=== PATIENT | male | born 1955 | race Hispanic/Latino ===

== ENCOUNTER 2018-03-15 12:18 | Inpatient (IN) | payer OTHER, BC, MEDICARE ==
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
[2018-03-15 13:09] LABS: ALB/GLOB RATIO 0.5 (1.0-2.1); ALBUMIN 2.3 g/dL (3.5-5.0); ALT/SGPT 44 U/L (21-72); AST/SGOT 95 U/L (17-59); BLOOD UREA NITROGEN 31 mg/dl (9-20); CALCIUM 8.2 mg/dL (8.4-10.2); GFR AFRICAN-AMERICAN > 60; GFR NON-AFRICAN AMERICAN > 60
--- NOTE | 2018-03-15 13:26 | RAD ---
HISTORY: cough COMPARISON: No prior. FINDINGS: LUNGS: No active pulmonary disease. PLEURA: No significant pleural effusion identified, no pneumothorax apparent. CARDIOVASCULAR: Atherosclerotic aortic calcifications. Cardiomediastinal silhouette prominent. OSSEOUS STRUCTURES: Degenerative changes. VISUALIZED UPPER ABDOMEN: Normal. OTHER FINDINGS: None. IMPRESSION: No active disease.
--- NOTE | 2018-03-15 13:37 | CT ---
PROCEDURE: CT HEAD WITHOUT CONTRAST. HISTORY: r/o bleed COMPARISON: None available. TECHNIQUE: Axial computed tomography images were obtained through the head/brain without intravenous contrast. Radiation dose: Total exam DLP = 841.39 mGy-cm. This CT exam was performed using one or more of the following dose reduction techniques: Automated exposure control, adjustment of the mA and/or kV according to patient size, and/or use of iterative reconstruction technique. FINDINGS: HEMORRHAGE: No intracranial hemorrhage. BRAIN: There are mild chronic microangiopathic changes. There is no mass, mass effect or abnormal extra-axial fluid collection. There is no territorial infarction. VENTRICLES: There is mild age-related global parenchymal volume loss and proportionate enlargement of the ventricles and cortical sulci. CALVARIUM: There is no calvarial fracture or extracranial soft tissue swelling. PARANASAL SINUSES: There is severe polypoid mucosal thickening in the left maxillary sinus and mild mucosal thickening in the ethmoid air cells. The remaining included paranasal sinuses are predominantly clear. MASTOID AIR CELLS: Predominantly clear. OTHER FINDINGS: None. IMPRESSION: No acute intracranial abnormality. Mild chronic microangiopathic changes and mild age-related global parenchymal volume loss. Chronic left maxillary sinusitis.
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
[2018-03-15] MEDS: Sodium Chloride 0.9% 1,000 ML IV SCH (14:29)
--- NOTE | 2018-03-15 15:35 | CARD ---
APPROVED REPORT EKG Measurement Heart [id number] CO [id number] <Conclusion> Normal sinus rhythm Normal ECG
[2018-03-15 15:36] LABS: PROTHROMBIN TIME 27.3 Seconds (9.8-13.1)
[2018-03-15 15:39] LABS: INR 2.4 (0.9-1.2)
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
[2018-03-15] MEDS ORDERED: Sod Polystyrene Sulf 15 gm/60 ml Susp PO ONE (21:37)
[2018-03-16 06:45] LABS: BASO % 0.3 % (0.0-2.0); EOS # 0.2 K/uL (0.0-0.7); EOS % 1.9 % (0.0-4.0); HEMOGLOBIN 11.8 g/dL (12.0-18.0); LYMPH # 0.6 K/uL (1.0-4.3); MEAN CELL VOLUME 105.6 fl (80.0-94.0); MEAN CORPUSCULAR HEMOGLOBIN 36.5 pg (27.0-31.0); MEAN CORPUSCULAR HGB CONC 34.5 g/dL (33.0-37.0); MEAN PLATELET VOLUME 10.8 fl (7.2-11.7); MONO # 1.2 K/uL (0.0-0.8); MONO % 14.8 % (0.0-10.0); NRBC % 0.3 % (0.0-0.0); PLATELET COUNT 42 K/uL (130-400); RBC 3.22 Mil/uL (4.40-5.90); RED CELL DISTRIBUTION WIDTH 16.4 % (11.5-14.5)
[2018-03-16 06:56] LABS: ALB/GLOB RATIO 0.5 (1.0-2.1); ALBUMIN 2.4 g/dL (3.5-5.0); ALT/SGPT 42 U/L (21-72); AST/SGOT 106 U/L (17-59); BLOOD UREA NITROGEN 29 mg/dl (9-20); CALCIUM 8.2 mg/dL (8.4-10.2); GFR AFRICAN-AMERICAN > 60; GFR NON-AFRICAN AMERICAN > 60
[2018-03-16] MEDS ORDERED: Enoxaparin 40 mg Syringe SC SCH (09:00)
[2018-03-16 09:05] LABS: BANDS 2 % (0-2); EOSINOPHIL 3 % (0-7); LYMPHOCYTE 5 % (20-50); MONOCYTE 12 % (0-10); NEUTROPHIL 78 % (42-75); TOTAL CELLS COUNTED 100
[2018-03-16 09:06] LABS: ANISOCYTOSIS SLIGHT; LARGE PLATELETS PRESENT; OVALOCYTES SLIGHT; PLATELET ESTIMATE MARKEDLY DECREASED (NORMAL)
[2018-03-16 09:07] LABS: TOXIC GRANULATION PRESENT
[2018-03-16] MEDS: Sodium Chloride 0.9% 1,000 ML IV SCH (09:40)
--- NOTE | 2018-03-16 10:50 | CP.PCM.PN ---
Subjective - Date & Time of Evaluation Date of Evaluation: 03/16/18 Time of Evaluation: 09:05 - Subjective Subjective: Patient seen and examined this morning at bedside w/ Dr. Domínguez. There are no acute events overnight, NAD. Patient is AAOx3 and less lethargic. Patient denies pain, headaches, chest pain, SOB, abdominal pain, nausea, vomiting, diarrhea, dysuria, or fever. Objective - Vital Signs/Intake and Output Vital Signs (last 24 hours): Temp Pulse Resp BP Pulse Ox 97.5 F L 67 18 113/73 96 03/16/18 08:11 03/16/18 09:39 03/16/18 08:11 03/16/18 09:39 03/16/18 08:11 - Medications Medications: Current Medications Carvedilol (Coreg) 3.125 mg PO Q12 [facility] Last Admin: 03/16/18 09:39 Dose: 3.125 mg Sodium Chloride (Sodium Chloride 0.9%) 1,000 mls @ 100 mls/hr IV .Q10H [facility] Last Admin: 03/16/18 09:40 Dose: 100 mls/hr Lactulose (Enulose) 20 gm PO Q12 [facility] Last Admin: 03/16/18 09:39 Dose: 20 gm Spironolactone (Aldactone) 100 mg PO DAILY [facility] Last Admin: 03/16/18 09:39 Dose: 100 mg - Labs Labs: 03/16/18 05:40 03/16/18 05:40 PT 27.3 Seconds (9.8-13.1) H 03/15/18 14:34 INR 2.4 (0.9-1.2) H 03/15/18 14:34 - Constitutional Appears: Non-toxic, No Acute Distress - Head Exam Head Exam: ATRAUMATIC, NORMAL INSPECTION - Eye Exam Eye Exam: Scleral icterus - ENT Exam ENT Exam: Mucous Membranes Moist - Neck Exam Neck Exam: Full ROM. absent: Tenderness - Respiratory Exam Respiratory Exam: Clear to Ausculation Bilateral. absent: Accessory Muscle Use , Decreased Breath Sounds, Rales, Rhonchi, Wheezes, Respiratory Distress - Cardiovascular Exam Cardiovascular Exam: REGULAR RHYTHM, RRR. absent: Tachycardia - GI/Abdominal Exam GI & Abdominal Exam: Soft, Normal Bowel Sounds. absent: Distended, Tenderness - Extremities Exam Extremities Exam: absent: Calf Tenderness - Neurological Exam Neurological Exam: Alert, Awake, Oriented x3 - Skin Skin Exam: Dry, Intact, Warm Additional comments: jaundiced Assessment and Plan (1) Hepatic encephalopathy Status: Acute - Assessment and Plan (Free Text) Plan: c/w present management afbrile, non-tachycardic, normotensive acutely confused most likely due to hepatic encephalopathy Gi consult recommendations appreciated ammonia decreased to 98 lactulose 20 mg PO Q12h IVF NS 1L @ 100 mL/h prophylactic measures: auto-anticoagulating due to advanced liver disease monitor for acute changes
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
[2018-03-16 16:37] VITALS: BP 95/54; PULSE 61; RESP 16; TEMP 97.9; O2SAT 94
[2018-03-16 20:55] LABS: IMMUNOGLOBULIN M 86.4 mg/dL (40.0-230.0)
[2018-03-16 21:15] LABS: IMMUNOGLOBULIN A 1260.4 mg/dL (70.0-400.0); IMMUNOGLOBULIN G 2623.2 mg/dL (700.0-1600.0)
[2018-03-16 21:39] LABS: HEPATITIS B SURFACE AG Negative (NEGATIVE)
[2018-03-16 21:45] LABS: HEPATITIS A IGM NEGATIVE (NEGATIVE); HEPATITIS B CORE AB NEGATIVE (NEGATIVE)
[2018-03-16 23:03] LABS: HEPATITIS C ANTIBODY REACTIVE (NEGATIVE)
== END 2018-03-16 19:10 | disposition left against medical advice (07) | DRG 442 ==
LOC: H.ER 12:18 → H.ERHOLD 13:39 → H.TEL 18:28
PROVIDERS: ADMIT Internal Medicine; ATTEND Internal Medicine
DX: K72.00 Acute and subacute hepatic failure without coma (principal); R18.8 Other ascites; E87.70 Fluid overload, unspecified; K74.60 Unspecified cirrhosis of liver; F17.210 Nicotine dependence, cigarettes, uncomplicated; Z91.11 Patient's noncompliance with dietary regimen; Z87.828 Personal history of other (healed) physical injury and trauma